=== PATIENT | female | born 1995 | race Caucasian/White ===

== ENCOUNTER 2019-01-15 01:20 | Emergency (ER) | payer OTHER ==
[2019-01-15 01:35] VITALS: RESP 18
--- NOTE | 2019-01-15 03:33 | ED ---
General Adult HPI - General Chief complaint: Abdominal Pain Stated complaint: Constipation Time Seen by Provider: 01/15/19 01:41 Source: patient Mode of arrival: ambulatory Limitations: no limitations - History of Present Illness Initial comments: 23-year-old female patient who is approximately 28 weeks with no care presents to the emergency department today for evaluation of rectal pain and pressure. Patient states she has not had a bowel movement in the last 2 weeks. Patient states she's been sitting on the toilet for most of the day attempting to pass a bowel movement. Patient is currently being treated at [facility] for heroin addiction. Patient states she has had Problems with constipation in the past. She denies any significant abdominal pain. Denies any hematuria, dysuria, urinary frequency, urinary urgency. She denies any fever or chills. Patient denies any recent rash, shortness breath, chest pain, nausea, vomiting, back pain, numbness, tingling, dizziness, weakness, headache, visual changes, or any other complaints. - Related Data Previous Rx's Medication Instructions Recorded Polyethylene Glycol 3350 [Miralax] 17 gm PO DAILY #5 packet 01/15/19 Allergies Allergy/AdvReac Type Severity Reaction Status Date / Time No Known Allergies Allergy Verified 01/15/19 03:35 Review of Systems ROS Statement: Those systems with pertinent positive or pertinent negative responses have been documented in the HPI. ROS Other: All systems not noted in ROS Statement are negative. Past Medical History Past Medical History: No Reported History History of Any Multi-Drug Resistant Organisms: Unobtainable Past Surgical History: Unable to Obtain Past Psychological History: Unable to Obtain Smoking Status: Unknown if ever smoked Past Alcohol Use History: Unable to Obtain Past Drug Use History: Heroin, IV Drug Use General Exam Limitations: no limitations General appearance: alert, in no apparent distress, other (Physical well- developed, well-nourished adult female patient in no acute distress. Vital signs upon presentation are temperature 97.7F, pulse 109, respirations 18, blood pressure 115/66, pulse ox 100% on room air.) Eye exam: Present: normal appearance, PERRL, EOMI. Absent: scleral icterus, conjunctival injection, periorbital swelling ENT exam: Present: normal exam, normal oropharynx, mucous membranes moist Respiratory exam: Present: normal lung sounds bilaterally. Absent: respiratory distress, wheezes, rales, rhonchi, stridor Cardiovascular Exam: Present: regular rate, normal rhythm, normal heart sounds. Absent: systolic murmur, diastolic murmur, rubs, gallop, clicks GI/Abdominal exam: Present: normal bowel sounds, other (Gravid). Absent: distended, tenderness, guarding, rebound, rigid Rectal exam: Present: fecal impaction, other (General swelling). Absent: normal inspection External exam: Present: swelling (Generalized labial swelling) By manual exam: Present: uterine enlargement, other (Cervical os is closed) Back exam: Present: normal inspection. Absent: CVA tenderness (R), CVA tenderness (L) Neurological exam: Present: alert, oriented X3, CN II-XII intact Psychiatric exam: Present: normal affect, normal mood Skin exam: Present: warm, dry, intact, normal color. Absent: rash Course Vital Signs 01/15/19 01:22 Temperature 97.7 F Pulse Rate 109 H Respiratory 18 Rate Blood Pressure 115/66 O2 Sat by Pulse 100 Oximetry Medical Decision Making - Medical Decision Making 23-year-old female patient presented to the emergency department today for evaluation of fecal impaction and constipation. Patient states that she has not had a bowel movement for the last 2 weeks. Patient she has been straining to use the bathroom all day. Patient states she is having rectal pain and pressure. Patient is also 28 weeks . Has had no care. Nurse from labor and delivery was done and didn't heart tones which ranged b etween 130 and 139. Bimanual exam was performed, cervical os is closed. No vaginal bleeding noted. I did perform rectal exam which did reveal hard ball of stool at the rectal opening. Patient refused disimpaction. We did administer milk and molasses enema. Patient did have a large bowel movement. She did report improvement of symptoms after bowel movement. Urinalysis was obtained and was negative for any evidence of infection. She'll be discharged back with prescription for MiraLAX. She is instructed to increase fluids and physical activity. She'll be discharged back to [facility]. She is instructed to follow-up with IT OPERATIONS MANAGER and primary care physician for recheck as soon as possible. Patient verbalizes understanding and agrees with this plan. - Lab Data Lab Results 01/15/19 Range/Units 04:16 Urine Color Yellow Urine Appearance Clear (Clear) Urine pH 6.0 (5.0-8.0) Ur Specific [place] 1.027 (1.001-1.035) Urine Protein Trace H (Negative) Urine Glucose (UA) Negative (Negative) Urine Ketones Negative (Negative) Urine Blood Negative (Negative) Urine Nitrite Negative (Negative) Urine Bilirubin Negative (Negative) Urine Urobilinogen 2.0 (<2.0) mg/dL Ur Leukocyte Esterase Negative (Negative) Disposition Clinical Impression: Rectal pain Disposition: HOME SELF-CARE Condition: Good Instructions (If sedation given, give patient instructions): Constipation (ED), Rectal Pain (ED) Additional Instructions: Increase fluids including water and fruit juices. Increase physical activity. Follow-up with your primary care physician for recheck as soon as possible. Return to the emergency department immediately for any new, worsening, or concerning symptoms. Prescriptions: Polyethylene Glycol 3350 [Miralax] 17 gm PO DAILY #5 packet Is patient prescribed a controlled substance at d/c from ED?: No Referrals: None,Stated [Primary Care Provider] - 1-2 days Time of Disposition: 03:36
[2019-01-15 04:31] LABS: Appearance,Urine Clear (Clear); Bilirubin,Urine Negative (Negative); Blood,Urine Negative (Negative); Color,Urine Yellow; Glucose,Urine (UA) Negative (Negative); Ketones,Urine Negative (Negative); Leukocyte Esterase,Urine Negative (Negative); Nitrite,Urine Negative (Negative); Protein,Urine Trace (Negative); Specific Gravity,Urine 1.027 (1.001-1.035)
[2019-01-15 04:55] VITALS: BP 114/74; PULSE 96; TEMP 97.9
== END 2019-01-15 05:52 | disposition home or self-care (01) ==
LOC: EC 01:20
DX: O99.613 Diseases of the digestive system complicating pregnancy, third trimester (principal); K62.89 Other specified diseases of anus and rectum; K56.41 Fecal impaction; O99.89 Other specified diseases and conditions complicating pregnancy, childbirth and the puerperium; N90.89 Other specified noninflammatory disorders of vulva and perineum; Z3A.28 28 weeks gestation of pregnancy; Z53.20 Procedure and treatment not carried out because of patient's decision for unspecified reasons
CPT/HCPCS: 81003; 99284

== ENCOUNTER → 2019-01-24 | Outpatient (CLI) | payer OTHER ==
[2019-01-24 23:24] VITALS: BP 112/53; PULSE 88; RESP 14; TEMP 97.7
[2019-01-24 23:59] LABS: Appearance,Urine Cloudy (Clear); Bilirubin,Urine Negative (Negative); Blood,Urine Negative (Negative); Calcium Oxalate Crystals,Urine Occasional /hpf; Color,Urine Yellow; Glucose,Urine (UA) Negative (Negative); Ketones,Urine Negative (Negative); Leukocyte Esterase,Urine Small (Negative); Mucus,Urine Moderate /hpf; Nitrite,Urine Negative (Negative); Protein,Urine Trace (Negative); RBC,Urine 1 /hpf (0-5); Specific Gravity,Urine 1.028 (1.001-1.035); Squamous Epithelial Cell,Urine 7 /hpf (0-4); WBC,Urine 2 /hpf (0-5)
--- NOTE | 2019-02-28 09:51 | P.MSEPDOC ---
Presenting Problems - Arrival Data Date of Arrival on Unit: 01/24/19 Time of Arrival on Unit: 23:00 Mode of Transport: Wheelchair - Complaint OB-Reason for Admission/Chief Complaint: Pain Comment: sharp shooting abd pain that starts in upper abd and shoots down Medical History - Information : 3 Para: 2 Term: 2 : 0 Abortions: Spontaneous or Elective: 0 Number of Living Children: 2 - Gestational Age Gestational Age by JUNE (wks/days): 30 Weeks and 5 Days - History Complications: No Care, Smoker, Hx. Substance Abuse Comment: pt in rehab for heroin, clean x25 days Review of Systems - Review of Systems Constitutional: No problems Breast: No problems ENT: No problems Cardiovascular: No problems Respiratory: No problems Gastrointestinal: No problems Genitourinary: No problems Musculoskeletal: No problems Neurological: No problems Skin: No problems Vital Signs - Temperature Temperature: 97.7 F Temperature Source: Temporal Artery Scan - Pulse Right Pulse Rate: 88 Pulse Assessment Method: Pulse Oximetry - Respirations Respiratory Rate: 14 O2 Sat by Pulse Oximetry: 100 - Blood Pressure Right Arm Blood Pressure: 112/53 Blood Pressure Mean: 72 Blood Pressure Source: Automatic Cuff Medical Screen Scoring (Pre) - Cervical Exam Dilation: Exam Deferred Effacement: Exam Deferred Membranes: Intact - Uterine Contractions Frequency: N/A Duration: N/A Intensity: N/A - Maternal Vital Signs Maternal Temperature: N/A Maternal Blood Pressure: N/A Signs of Preeclampsia: N/A Maternal Respirations: N/A - Maternal Trauma Maternal Trauma: N/A - Assessment - Baby A Baseline FHR: 140 Heart Rate - NICHD Category: Category II (Indeterminate) = 3 Position: N/A - Total Score - Baby A Total Score - Baby A: 3 - Total Score - Baby B Total Score - Baby B: 0 - Total Score - Baby C Total Score - Baby C: 0 - Level of Risk - Baby A Level of Risk - Baby A: Low (0-5) - Level of Risk - Baby B Level of Risk - Baby B: Low (0-5) - Level of Risk - Baby C Level of Risk - Baby C: Low (0-5) Physician Notification (Pre) - Notification Comment Comment: in triage Medical Screen Scoring (Post) - Cervical Exam Dilation: Exam Deferred Effacement: Exam Deferred Membranes: Intact - Uterine Contractions Frequency: N/A Duration: N/A Intensity: N/A - Maternal Vital Signs Maternal Temperature: N/A Maternal Blood Pressure: N/A Signs of Preeclampsia: N/A Maternal Respirations: N/A - Maternal Trauma Maternal Trauma: N/A - Assessment - Baby A Heart Rate: 135 Heart Rate - NICHD Category: Category I (Normal) = 0 NST: Reactive Position: N/A - Total Score Total Score - Baby A: 0 Total Score - Baby B: 0 Total Score - Baby C: 0 - Post Treatment Level of Risk Post Treatment Level of Risk - Baby A: Low (0-5) Physician Notification (Post) - Physician Notified Physician Notified Date: 01/25/19 Physician Notified Time: 00:06 Physician/Practitioner Notified:: Dr Saucedo - Notification Comment Comment: reported on UA results, pts pain, fhts, no cntrx, vitals. Orders to d/c home with instructions- back to [place]. increase fluids. keep scheduled appt on saturday Disposition - Disposition OB Disposition: Discharge to home Transferred to:: d/c to [facility] Discharge Date: 01/25/19 Discharge Time: 00:14 I agree with the RN Medical Screening Exam: Yes Risk & Benefit of care provided described in d/c instruction: Yes Diagnosis: UNSPECIFIED ABDOMINAL PAIN
== END ==
LOC: FBPOP 23:00
PROVIDERS: ATTEND Obstetrics & Gynecology
DX: O26.893 Other specified pregnancy related conditions, third trimester (principal); R10.10 Upper abdominal pain, unspecified; Z3A.30 30 weeks gestation of pregnancy
CPT/HCPCS: 59025; 81001; 99213

== ENCOUNTER 2020-11-02 08:56 | Inpatient (IN) | payer OTHER ==
[2020-11-02] MEDS: LACTATED RINGERS 1,000 ML IV SCH ×2 (09:20→15:35)
[2020-11-02] MEDS ORDERED: CITRIC ACID-SODIUM CITRATE 15 ML CUP PO ONE (09:21)
[2020-11-02] MEDS ORDERED: HYDROmorphone (PF) 1 MG/ML ONE (09:23)
[2020-11-02] MEDS ORDERED: SODIUM CHLORIDE 0.9% 100 ML BAG ONE (09:23)
[2020-11-02] MEDS ORDERED: ONDANSETRON 4 MG/2 ML VIAL ONE (09:23)
[2020-11-02] MEDS ORDERED: SUCCINYLCHOLINE CHLORIDE 100 MG/5 ML SYR IV ONE (09:23)
[2020-11-02] MEDS ORDERED: ceFAZolin 1,000 MG VIAL ONE (09:23)
[2020-11-02] MEDS ORDERED: KETOROLAC 15 MG/ML 1 ML VIAL ONE (09:23)
[2020-11-02] MEDS ORDERED: PHENYLEPHRINE-0.9% NACL SYG 1,000 MCG/10 ML SYRINGE ONE (09:23)
[2020-11-02] MEDS ORDERED: PROPOFOL 10 MG/ML 20 ML VIAL IV ONE (09:23)
[2020-11-02] MEDS ORDERED: fentaNYL (PF) 50 MCG/ML 2 ML AMP ONE (09:23)
[2020-11-02] MEDS ORDERED: OXYTOCIN 10 UNIT/ML 1 ML VIAL ONE (09:23)
[2020-11-02 09:56] LABS: Phencyclidine Screen,Urine Not Detected (NotDetected); Urn Cannabinoid Scrn Not Detected (NotDetected)
[2020-11-02 09:57] LABS: Amphetamine Screen,Urine Not Detected (NotDetected); Barbiturate Screen,Urine Not Detected (NotDetected); Benzodiazepines Screen,Urine Not Detected (NotDetected); Cocaine Screen,Urine Not Detected (NotDetected); Methadone Screen, Urine Detected (NotDetected); Opiate Screen,Urine Not Detected (NotDetected); Oxycodone Screen, Urine Not Detected (NotDetected); Tricyclic Antidepressant,Urine Not Detected (NotDetected)
[2020-11-02] MEDS ORDERED: ONDANSETRON 4 MG/2 ML VIAL IVP PRN (10:18)
[2020-11-02] MEDS ORDERED: diphenhydrAMINE 50 MG/ML 1 ML VIAL IVP PRN (10:18)
[2020-11-02] MEDS ORDERED: diphenhydrAMINE 25 MG CAP PO PRN (10:18)
[2020-11-02] MEDS ORDERED: LANOLIN CREAM 5 GM TUBE TOPICAL PRN (10:18)
[2020-11-02] MEDS ORDERED: METOCLOPRAMIDE 5 MG/ML 2 ML VIAL IVP PRN (10:18)
[2020-11-02] MEDS ORDERED: ZOLPIDEM 5 MG TAB PO PRN (10:18)
[2020-11-02] MEDS ORDERED: NALOXONE 0.4 MG/ML 1 ML VIAL IV PRN (10:18)
[2020-11-02] MEDS ORDERED: SIMETHICONE 80 MG CHEWABLE PO PRN (10:18)
--- NOTE | 2020-11-02 10:19 | XR ---
EXAMINATION TYPE: XR abdomen 1V DATE OF EXAM: 11/02/2020 COMPARISON: NONE HISTORY: Possible foreign body TECHNIQUE: One view abdominal series FINDINGS: The osseous structures are intact. The bowel gas pattern is nonspecific. Extensive retained fecal de bris. Surgical lito noted. Air in the pelvis could be within the bladder or related surgery correl ate clinically. Upper abdomen not included. Visualized portions of the abdomen demonstrate no definit e foreign body. IMPRESSION: 1. Nonspecific abdomen. See above.
--- NOTE | 2020-11-02 10:27 | P.HPOB ---
History of Present Illness H&P Date: 11/02/20 Chief Complaint: Vaginal bleeding, , lower abdominal pain This patient is a 25-year-old 4 para 3 female estimated date of confinement 11/30/2020 estimated gestational age 36 weeks who presents to labor and delivery with complaints of vaginal bleeding that started today patient also associated lower abdominal pain. Please note patient's care is done by a physician at another hospital ([facility]) and this H&P is done after delivery. Was called by the triage nurse with concerns for heart tones. heart tones were in the 130s but however head decelerations and bradycardic episodes. She stated that she had a large amount of blood at home was having some bleeding here. care appears to be complicated by methadone use. Patient denies other complications or abdominal trauma. Review of Systems Genitourinary: Reports abnormal vaginal bleeding, Reports Past Medical History Past Medical History: No Reported History Additional Past Medical History / Comment(s): Patient's had 3 previous vaginal deliveries. History of Any Multi-Drug Resistant Organisms: None Reported, Unobtainable Past Surgical History: Unable to Obtain Past Psychological History: Unable to Obtain Past Alcohol Use History: Unable to Obtain Past Drug Use History: Heroin, IV Drug Use Additional Drug Use History / Comment(s): Methadone Medications and Allergies Home Medications Medication Instructions Recorded Confirmed Type Methadone [Dolophine] 70 mg PO QAM 01/24/19 11/02/20 History Methadone [Dolophine] 25 mg PO HS 11/02/20 11/02/20 History Pnv No.95/Ferrous Fum/Folic AC 1 tablet PO DAILY 11/02/20 11/02/20 History [ Multivitamin Tablet] Allergies Allergy/AdvReac Type Severity Reaction Status Date / Time No Known Allergies Allergy Verified 01/24/19 23:12 Exam Intake and Output 11/01/20 11/02/20 11/02/20 22:59 06:59 14:59 Other: Weight 76.204 kg - OBG Physical Exam Uterus: enlarged Results Review of her records show she is O positive, rubella immune, RPR is nonreactive, HIV is nonreactive, hepatitis B is negative Abnormal Lab Results - Last 24 Hours (Table) 11/02/20 Range/Units 09:16 Urine Methadone Screen Detected H (NotDetected) Assessment and Plan Assessment: This is a 25-year-old 4 para 3 female 36-0/7 weeks gestation admitted to triage with complaints of lower abdominal pain, bleeding, and bradycardia on presentation. Patient was taken for emergent low transverse section, please see dictated operative note (1) 36 weeks gestation of Current Visit: Yes Status: Acute Code(s): Z3A.36 - 36 WEEKS GESTATION OF SNOMED Code(s): 71144648 (2) bradycardia Current Visit: Yes Status: Acute Code(s): GCV9497 - SNOMED Code(s): 726088618 (3) Placental abruption in third trimester Current Visit: Yes Status: Acute Code(s): O45.93 - PREMATURE SEPARATION OF PLACENTA, UNSP, THIRD TRIMESTER SNOMED Code(s): 238430232 (4) Substance abuse Current Visit: Yes Status: Acute Code(s): F19.10 - OTHER PSYCHOACTIVE SUBST ANCE ABUSE, UNCOMPLICATED SNOMED Code(s): 37220809
[2020-11-02] MEDS ORDERED: OXYTOCIN 30 UNITS/500 ML NS 30 UNIT in SALINE 1 500ML.BAG IV SCH (10:30)
--- NOTE | 2020-11-02 10:33 | P.OP ---
Date of Procedure: 11/02/20 Preoperative Diagnosis: #1: 36-0/7 week uterine . #2: Vaginal bleeding and abdominal pain, clinical some sort abruption #3: Substance abuse. #4: Non-reassuring heart tones remote from delivery Postoperative Diagnosis: Same, partial placental abruption, evidence of previous uterine trauma Procedure(s) Performed: Emergent primary low transverse section Anesthesia: BIANCA Surgeon: Jordan Floyd Glass Embosser #1: Aravind Harrell Estimated Blood Loss (ml): 800 Pathology: other (Placenta) Condition: stable Disposition: floor Indications for Procedure: Please see dictated H&P for intimate details of this patient's admission. Brief summary is a 25-year-old 4 para 3 female admitted through the triage area with complaints of vaginal bleeding and lower abdominal pain. Patient no care at this facility. Patient was having nonreassuring heart tones and therefore I recommend she proceed with emergent section for delivery. Patient did consent for the surgery and briefly discussed risks. All patient's questions were answered written consent is obtained. Operative Findings: This is a vigorous viable male Apgars 8 and 9 delivery time was 0929 hours. There were several large dark clots and the uterine cavity consistent with placental abruption. Uterus was also discolored consistent with previous trauma. Description of Procedure: This patient has a Genao catheter placed to straight drain and IV placed emergently. She is quickly taken to the operating room where she is laid in the supine position. After the appropriate timeout she has a prep and drape. She undergoes rapid sequence general endotracheal anesthesia. With an adequate level of anesthesia scalpels taken Pfannenstiel incision is made. A second scalpel is taken down the fascia the fascia scored with a knife. Fascial incision extended bilaterally using Lindsey scissors. Fascia is then dissected off the rectus muscles sharply. Rectus muscles are peritoneum identified and entered sharply. Peritoneal incision extended bluntly. Bladder blade is then placed. Bladder peritoneum was taken off the lower uterine segment with Metzenbaum scissors. Scalpels taken low transverse uterine incision is made. Using a hemostat I into the uterine cavity bluntly. There is a small amount of clear fluid. This incision extended bluntly. 's head is then guided through the incision with fundal pressure noted several small dark clots consistent with ongoing abruption at this time. Rest this infant's body is then delivered with fundal pressure. The umbilical cord is doubly clamped and cut infant is handed off to the nurses in attendance and the terrazzo supervisor who is in the room as well. The is a viable male infant Apgars are 8 and 9 delivery time was 0929 hours. After delivery of the infant the umbilical cords doubly clamped and cut. The placenta is then manually extracted and again her several other small clots consistent with partial abruption. This done the uterus is externalized. Uterine incision demarcated with Sutton clamps. On the left side of the uterus is evidence of a prior trauma to the uterus of unknown etiology. Uterine incision is closed using 0 Vicryl running locked fashion 2 layers. Bladder peritoneum was then reapproximated using a 3-0 Vicryl. Excess fluid is removed from the abdomen and pelvis. Tubes and ovaries appear normal for term gestation. Uterus placed back into the abdomen. Excellent hemostasis is noted. The parietal peritoneum was then identified and closed using 0 Vicryl running fashion. Rectus muscles reapproximated in 0 Vicryl interrupted fashion. Fascial incision closed using 0 PDS running fashion. Fascial incision is intact and hemostatic. Subcutaneous tissues and closed using 3-0 Vicryl. Amanda were then used to close the skin. Due to the emergent nature of the surgery we were unable to do a complete count prior to incision therefore a abdominal x-ray was obtained and it was negative. All counts were correct otherwise.
[2020-11-02] MEDS: HYDROmorphone PCA 10 MG/50 ML BAG IV PRN ×2 (10:51→17:58)
[2020-11-02 11:52] LABS: Basophils # (A) 0.1 k/uL (0-0.2); Basophils % (A) 0 %; Eosinophils # (A) 0.1 k/uL (0-0.7); Eosinophils % (A) 1 %; HCT 36.9 % (34.0-46.0); HGB 12.7 gm/dL (11.4-16.0); Lymphocytes # (A) 1.2 k/uL (1.0-4.8); Lymphocytes % (A) 9 %; MCH 30.1 pg (25.0-35.0); MCHC 34.3 g/dL (31.0-37.0); MCV 87.6 fL (80.0-100.0); Monocytes # (A) 0.7 k/uL (0-1.0); Monocytes % (A) 5 %; Neutrophils % (A) 84 %; Platelet Count 189 k/uL (150-450); RBC 4.21 m/uL (3.80-5.40); RDW 15.6 % (11.5-15.5); WBC 13.1 k/uL (3.8-10.6)
[2020-11-02] MEDS: SENNOSIDES-DOCUSATE SODIUM 1 EACH TAB PO SCH (20:24)
[2020-11-02] MEDS: KETOROLAC 15 MG/ML 1 ML VIAL IVP SCH (20:38)
--- NOTE | 2020-11-02 21:03 | P.MSEPDOC ---
Presenting Problems - Arrival Data Date of Arrival on Unit: 11/02/20 Time of Arrival on Unit: 09:13 Mode of Transport: Portable - Complaint OB-Reason for Admission/Chief Complaint: Vaginal Bleeding Comment: Patient presents to triage with vaginal bleeding that started around 0630 this am, shows RN a photo of a pad saturated with bright red blood and clots, Patient states she is having contractions that are 5-7 minutes apart. Patient states she has not felt the baby move today, but that it is, "not out of the norm" for him not to move this early in the am. Patient is a DOM of Dr. Estrada out [facility]. Patient is also currently on methadone and at a treatment center for history of Heroin use. Medical History - Information : 4 Para: 3 Term: 0 : 0 Abortions: Spontaneous or Elective: 0 Number of Living Children: 3 - Gestational Age Gestational Age by JUNE (wks/days): 35 Weeks and 6 Days - History Complications: Hx. Substance Abuse Comment: History of Heroin use 6 months ago Review of Systems - Review of Systems Constitutional: No problems Breast: No problems ENT: No problems Cardiovascular: No problems Respiratory: No problems Gastrointestinal: No problems Genitourinary: No problems Musculoskeletal: No problems Neurological: No problems Skin: No problems Vital Signs - Temperature Temperature: 98.3 F Temperature Source: Oral - Pulse Pulse Oximetery Pulse Rate: 85 Pulse Assessment Method: Automatic Cuff - Respirations Respiratory Rate: 16 Oxygen Delivery Method: Room Air O2 Sat by Pulse Oximetry: 98 - Blood Pressure Sitting Blood Pressure: 115/59 Blood Pressure Mean: 77 Blood Pressure Source: Automatic Cuff Medical Screen Scoring (Pre) - Cervical Exam Dilation: Exam Deferred Effacement: Exam Deferred Membranes: Intact - Uterine Contractions Frequency: < 36 weeks = 6 Duration: > 40 seconds = 2 Intensity: Contraction palpated strong = 1 - Maternal Vital Signs Maternal Temperature: N/A Maternal Blood Pressure: N/A Signs of Preeclampsia: N/A Maternal Respirations: N/A - Maternal Trauma Maternal Trauma: Ambrose bleeding = 5 - Assessment - Baby A Heart Rate - NICHD Category: Category II (Indeterminate) = 3 NST: Non-reactive = 3 Position: N/A Station: N/A - Total Score - Baby A Total Score - Baby A: 20 - Total Score - Baby B Total Score - Baby B: 14 - Total Score - Baby C Total Score - Baby C: 14 - Level of Risk - Baby A Level of Risk - Baby A: High (10+) - Level of Risk - Baby B Level of Risk - Baby B: High (10+) - Level of Risk - Baby C Level of Risk - Baby C: High (10+) Physician Notification (Pre) - Physician Notified Physician Notified Date: 11/02/20 Physician Notified Time: 09:13 New Order Received: Yes - Notification Comment Comment: Admit and Prep patient for an emergency C/S physician is on his way. Disposition - Disposition OB Disposition: Admit, LDRP Suite Transferred to:: Suite 14 I agree with the RN Medical Screening Exam: Yes Case reviewed; plan agreed upon as documented in EMR&OBIX.: Yes Diagnosis: SPOTTING COMPLICATING , THIRD TRIMESTER (Please see dictated H&P on this patient's admission and delivery. Patient presented to labor and delivery with suspected placental abruption and went for immediate delivery.)
[2020-11-03] MEDS: LACTATED RINGERS 1,000 ML IV SCH (00:36)
[2020-11-03] MEDS: KETOROLAC 15 MG/ML 1 ML VIAL IVP SCH ×2 (03:08→12:46)
[2020-11-03] MEDS: HYDROmorphone PCA 10 MG/50 ML BAG IV PRN (03:46)
--- NOTE | 2020-11-03 06:12 | P.PNOBGPC ---
Subjective - Subjective Patient reports: Reports appetite normal, Reports voiding normally, Reports pain well controlled, Reports ambulating normally : doing well Objective - Vital Signs Latest vital signs: Vital Signs Temp Pulse Resp BP Pulse Ox 11/03/20 04:00 98.4 F 84 16 103/67 99 11/02/20 23:31 98.1 F 90 16 94/56 99 11/02/20 21:03 98.3 F 85 16 115/59 98 11/02/20 20:00 98.3 F 85 16 115/59 98 11/02/20 16:00 98.2 F 78 16 111/67 11/02/20 12:20 98.1 F 71 16 101/69 99 11/02/20 11:50 67 16 100/66 99 11/02/20 11:20 77 16 95/59 100 11/02/20 11:05 72 16 90/51 100 11/02/20 10:50 70 16 95/60 100 11/02/20 10:35 72 16 98/62 98 11/02/20 10:20 98.0 F 79 16 117/74 100 11/02/20 09:20 97.2 F L 88 16 130/67 100 Intake and Output 11/02/20 11/02/20 11/03/20 14:59 22:59 06:59 Output Total 767 650 9393 Balance -100 -600 -1000 Output: Urine 195 615 8894 Uretheral (Genao) 300 Other: # Voids 1 Weight 76.204 kg - Exam Lungs: bilateral: normal Chest: Normal S1, Normal S2 Extremities: Present: normal Abdomen: Present: normal appearance, soft. Absent: distention, tenderness Incision: Present: normal, dry, intact Uterus: Present: normal, firm - Labs Labs: Abnormal Lab Results - Last 24 Hours (Table) 11/02/20 11/02/20 Range/Units 09:16 10:59 WBC 13.1 H (3.8-10.6) k/uL RDW 15.6 H (11.5-15.5) % Neutrophils # 11.0 H (1.3-7.7) k/uL Urine Methadone Screen Detected H (NotDetected) Assessment and Plan Assessment: Post operative day #1. Patient is resting without new complaints. Vital signs are stable and she is afebrile. Uterus is firm nontender and her incision is intact and dry. Patient is ambulating and urinating without difficulty. She currently is using her FIELD FOREMAN but plan today is to discontinue the FIELD FOREMAN and change her back over to her Methadone. Also have the patient shower, check a CBC, and advance her diet. (1) 36 weeks gestation of Current Visit: Yes Status: Acute Code(s): Z3A.36 - 36 WEEKS GESTATION OF SNOMED Code(s): 70888376 (2) bradycardia Current Visit: Yes Status: Acute Code(s): SON7359 - SNOMED Code(s): 816654396 (3) Placental abruption in third trimester Current Visit: Yes Status: Acute Code(s): O45.93 - PREMATURE SEPARATION OF PLACENTA, UNSP, THIRD TRIMESTER SNOMED Code(s): 179038030 (4) Substance abuse Current Visit: Yes Status: Acute Code(s): F19.10 - OTHER PSYCHOACTIVE SUBSTANCE ABUSE, UNCOMPLICATED SNOMED Code(s): 13791426
[2020-11-03] MEDS: SENNOSIDES-DOCUSATE SODIUM 1 EACH TAB PO SCH ×2 (08:19→21:08)
[2020-11-03] MEDS: METHADONE 10 MG TAB PO SCH (09:48)
[2020-11-03 09:49] LABS: Anisocytosis Slight; Basophils % (A) 0 %; Eosinophils # (A) 0.1 k/uL (0-0.7); Eosinophils % (A) 2 %; HCT 26.6 % (34.0-46.0); Lymphocytes # (A) 1.3 k/uL (1.0-4.8); Lymphocytes % (A) 17 %; MCH 29.7 pg (25.0-35.0); MCHC 34.2 g/dL (31.0-37.0); Mean Platelet Volume 7.8; Monocytes # (A) 0.5 k/uL (0-1.0); Monocytes % (A) 7 %; Neutrophils # (A) 5.7 k/uL (1.3-7.7); Neutrophils % (A) 74 %; Platelet Count 166 k/uL (150-450); RBC 3.06 m/uL (3.80-5.40); RDW 16.3 % (11.5-15.5); WBC 7.7 k/uL (3.8-10.6)
[2020-11-03 09:52] LABS: HGB 9.1 gm/dL (11.4-16.0)
[2020-11-03] MEDS: IBUPROFEN 600 MG TAB PO PRN ×2 (13:20→21:07)
[2020-11-03] MEDS: METHADONE 5 MG TAB PO SCH (21:06)
[2020-11-04] MEDS: ACETAMINOPHEN TAB 500 MG TAB PO SCH ×2 (00:05→11:43)
[2020-11-04] MEDS: IBUPROFEN 600 MG TAB PO PRN ×2 (03:28→21:15)
--- NOTE | 2020-11-04 06:55 | P.PNOBGPC ---
Subjective - Subjective Patient reports: Reports appetite normal, Reports voiding normally, Reports pain well controlled, Reports ambulating normally : doing well Objective - Vital Signs Latest vital signs: Vital Signs Temp Pulse Resp BP Pulse Ox 11/04/20 00:00 98.1 F 80 16 92/62 100 11/03/20 16:00 98.6 F 76 16 103/64 11/03/20 12:00 98.4 F 91 16 107/52 11/03/20 08:00 98.7 F 78 16 102/58 Intake and Output 11/03/20 11/03/20 11/04/20 14:59 22:59 06:59 Other: # Voids 1 - Exam Lungs: bilateral: normal Chest: Normal S1, Normal S2 Extremities: Present: normal Abdomen: Present: normal appearance, soft. Absent: distention, tenderness Incision: Present: normal, dry, intact Uterus: Present: normal, firm - Labs Labs: Abnormal Lab Results - Last 24 Hours (Table) 11/03/20 Range/Units 08:29 RBC 3.06 L (3.80-5.40) m/uL Hgb 9.1 L D (11.4-16.0) gm/dL Hct 26.6 L (34.0-46.0) % RDW 16.3 H (11.5-15.5) % Assessment and Plan Assessment: Postoperative day #2. Patient is resting without new complaints. INTERNIST MEDICAL DOCTOR MD has been discontinued and she has been changed over to her stated methadone dose. Uterus is firm nontender and her incision is intact and dry. Vital signs are stable and she is afebrile. Hemoglobin yesterday was 9.1 is consistent with postsurgical changes. Patient desires to stay today. Baby is still in special care and she really has not interacted much with this baby. Plan is to continue routine post operative care. Dr. Jones we'll see this patient over the weekend and when discharged to follow up with her primary dictating transcribing machine servicer at [facility]. (1) 36 weeks gestation of Current Visit: Yes Status: Acute Code(s): Z3A.36 - 36 WEEKS GESTATION OF SNOMED Code(s): 22370319 (2) bradycardia Current Visit: Yes Status: Acute Code(s): YGM2675 - SNOMED Code(s): 480356850 (3) Placental abruption in third trimester Current Visit: Yes Status: Acute Code(s): O45.93 - PREMATURE SEPARATION OF PLACENTA, UNSP, THIRD TRIMESTER SNOMED Code(s): 881541006 (4) Substance abuse Current Visit: Yes Status: Acute Code(s): F19.10 - OTHER PSYCHOACTIVE SUBSTANCE ABUSE, UNCOMPLICATED SNOMED Code(s): 69465876
[2020-11-04] MEDS: SENNOSIDES-DOCUSATE SODIUM 1 EACH TAB PO SCH ×2 (10:05→21:11)
[2020-11-04] MEDS: METHADONE 10 MG TAB PO SCH (10:06)
[2020-11-04] MEDS: METHADONE 5 MG TAB PO SCH (21:10)
[2020-11-05] MEDS: ACETAMINOPHEN TAB 500 MG TAB PO SCH ×3 (00:07→23:46)
[2020-11-05 02:49] VITALS: RESP 16
[2020-11-05] MEDS: IBUPROFEN 600 MG TAB PO PRN ×4 (03:05→20:58)
[2020-11-05] MEDS: METHADONE 10 MG TAB PO SCH (09:05)
[2020-11-05] MEDS: SENNOSIDES-DOCUSATE SODIUM 1 EACH TAB PO SCH ×2 (09:09→21:00)
--- NOTE | 2020-11-05 12:31 | P.PNOBGPC ---
Subjective - Subjective Principal diagnosis: Status post section postoperative day #3 Interval history: Patient is doing okay. She still states her pain is moderate. She is taking ibuprofen and methadone. Bleeding is minimal. She would like to stay 1 more day. Patient reports: Reports appetite normal, Reports voiding normally, Reports pain well controlled, Reports ambulating normally : other (In level I nursery) Objective - Vital Signs Latest vital signs: Vital Signs Temp Pulse Resp BP Pulse Ox 11/05/20 08:00 98.0 F 71 16 103/67 99 11/05/20 00:00 99.0 F 71 16 112/70 100 Intake and Output 11/04/20 11/05/20 11/05/20 22:59 06:59 14:59 Other: # Voids 1 - Exam Extremities: Present: normal. Absent: tenderness, edema Abdomen: Present: normal appearance, soft (Positive bowel sounds 4). Absent: distention, tenderness Incision: Present: normal, dry, intact. Absent: erythematous Uterus: Present: normal, firm. Absent: tenderness Assessment and Plan Assessment: Status post section postoperative day #3 Plan: Continue with postoperative and care. Anticipate discharge home ila mcfadden.
[2020-11-05 15:44] VITALS: BP 106/64; PULSE 77; TEMP 97.9
[2020-11-05] MEDS: METHADONE 5 MG TAB PO SCH (20:57)
[2020-11-06] MEDS: IBUPROFEN 600 MG TAB PO PRN (06:08)
[2020-11-06] MEDS: ACETAMINOPHEN TAB 500 MG TAB PO SCH ×2 (08:32→08:33)
[2020-11-06] MEDS: SENNOSIDES-DOCUSATE SODIUM 1 EACH TAB PO SCH (08:33)
[2020-11-06] MEDS: METHADONE 10 MG TAB PO SCH (09:24)
--- NOTE | 2020-11-06 12:07 | P.DS ---
Providers Date of admission: 11/02/20 09:19 Expected date of discharge: 11/06/20 Attending physician: Jordan Floyd Primary care physician: Stated None Hospital Course: This is a 25-year-old female 4 para 3 at 35-5/7 weeks who presented with vaginal bleeding and was found to have placental abruption. She underwent a primary low transverse section on 11/02/2020 and delivered a viable male . Her and postoperative course were uncomplicated. She was resumed on her methadone after stopping MARINE SPECIALIST pump. She also has been using ibuprofen. Her pain is fairly well controlled. Lochia is decreasing. She is tolerating regular diet. Vital signs are stable. Abdomen is soft with positive bowel sounds 4. Incision is clean dry and intact. [place] will be removed before discharge. Impression is status post primary low transverse section postoperative day #4. Plan is to discharge home today. She is instructed to follow-up with Dr. Hill, her PAPER SPOOLER, in approximately 1 week. [place] will be removed and sterile strips placed prior to discharge. She does have an order for ibuprofen to go home with. She is advised to follow-up with her physician for methadone treatment. She is advised to call her PAPER SPOOLER or return to the emergency room if any new concerns. Procedures: Primary low transverse section on 11/02/2020 Patient Condition at Discharge: Stable Plan - Discharge Summary New Discharge Prescriptions: New Ibuprofen [Motrin] 600 mg PO Q6HR PRN #40 tab PRN Reason: Mild Pain No Action Methadone [Dolophine] 70 mg PO QAM Methadone [Dolophine] 25 mg PO HS Pnv No.95/Ferrous Fum/Folic AC [ Multivitamin Tablet] 1 tablet PO DAILY Discharge Medication List Methadone [Dolophine] 70 mg PO QAM 01/24/19 [History] Methadone [Dolophine] 25 mg PO HS 11/02/20 [History] Pnv No.95/Ferrous Fum/Folic AC [ Multivitamin Tablet] 1 tablet PO DAILY 11/02/20 [History] Ibuprofen [Motrin] 600 mg PO Q6HR PRN #40 tab 11/04/20 [Rx] Follow up Appointment(s)/Referral(s): Monica Nieto MD [REFERRING] - 1 Week Patient Instructions/Handouts: (DC) Activity/Diet/Wound Care/Special Instructions: No intercourse or anything per vagina for 6 weeks. No heavy lifting or strenuous activity for 6 weeks. Please contact your primary baker test for an incision check in 1 week Discharge Disposition: HOME SELF-CARE
== END 2020-11-06 13:00 | disposition home or self-care (01) | DRG 786 ==
LOC: FBPOP 08:56 → 4FBP 09:19
PROVIDERS: ADMIT Obstetrics & Gynecology; ATTEND Obstetrics & Gynecology
PROC: 10D00Z1 Extraction of Products of Conception, Low, Open Approach (ICD-10-PCS; principal; 2020-11-02 09:24)
DX: O45.93 Premature separation of placenta, unspecified, third trimester (principal); O60.14X0 Preterm labor third trimester with preterm delivery third trimester, not applicable or unspecified; O99.324 Drug use complicating childbirth; F11.20 Opioid dependence, uncomplicated; O76 Abnormality in fetal heart rate and rhythm complicating labor and delivery; Z3A.36 36 weeks gestation of pregnancy; Z37.0 Single live birth; Z79.899 Other long term (current) drug therapy
CPT/HCPCS: 59025; 74018; 80306; 85025; 86850; 86900; 86901; 88307; 99215